=== PATIENT | male | born 1950 | race Caucasian/White ===

== ENCOUNTER 2023-04-19 06:25 | Day surgery (SDC) | payer MEDICARE ==
[~2023-04-19] VITALS: Ht 190.5 cm; Wt 117.7 kg
[2023-04-19] VITALS (7 sets, daily range): BP systolic 117–138; BP diastolic 67–75; PULSE 65–79; RESP 14–16; TEMP 98.1; O2SAT 93–95
[2023-04-19] MEDS ORDERED: normal saline 1000ml 1,000 ML IV PRN (06:45)
[2023-04-19] MEDS ORDERED: ceFAZolin 2,000MG in D5W 100mL IV ONE (06:45)
[2023-04-19] MEDS ORDERED: NAPR-56 PO (07:21)
[2023-04-19 08:02] LABS: BASOPHILS % (AUTO) 0.4 % (0-1); EOSINOPHILS # (AUTO) 0.6 X10'3 (0-0.9); EOSINOPHILS % (AUTO) 6.7 % (0-6); HEMATOCRIT 40.7 % (42.0-52.0); HEMOGLOBIN 13.5 g/dl (14.0-17.9); LYMPHOCYTES # (AUTO) 1.7 X10'3 (1.1-4.8); LYMPHOCYTES % (AUTO) 17.7 % (21-51); MEAN CORPUSCULAR HEMOGLOBIN 31.7 PG (27.0-31.0); MEAN CORPUSCULAR HGB CONC 33.2 g/dL (33.0-36.5); MEAN CORPUSCULAR VOLUME 95.5 FL (78-98); MEAN PLATELET VOLUME 6.7 FL (7.4-10.4); MONOCYTES # (AUTO) 0.5 X10'3 (0-0.9); MONOCYTES % (AUTO) 5.1 % (2-12); NEUTROPHILS # (AUTO) 6.7 X10'3 (1.8-7.7); NEUTROPHILS % (AUTO) 70.1 % (42-75); PLATELET COUNT 309 X10'3 (140-440); RED BLOOD COUNT 4.26 X10'6 (4.70-6.10); RED CELL DISTRIBUTION WIDTH 15.8 % (11.5-14.5); WHITE BLOOD COUNT 9.6 X10'3 (4.5-11.0)
[2023-04-19 08:08] LABS: INR 0.9 INR; PROTHROMBIN TIME 10.2 SECONDS (9.0-12.0)
[2023-04-19] MEDS ORDERED: LIDOcaine 1% 30ml preserv. free vial ONE (08:37)
[2023-04-19] MEDS ORDERED: midazolam 1 mg/ML 2ml injection ONE (08:37)
[2023-04-19] MEDS ORDERED: diphenhydrAMINE 50 mg/ml inj ONE (08:37)
[2023-04-19] MEDS ORDERED: fentaNYL/PF 50MCG/1 ML 2ML syringe ONE (08:37)
[2023-04-19] MEDS ORDERED: normal saline 1000ml 1,000 ML IV SCH (10:00)
== END 2023-04-19 11:06 | disposition home or self-care (01) ==
LOC: SSTAY O 06:25
PROVIDERS: ATTEND Radiology Vascular & Interventional Radiology
DX: M51.86 Other intervertebral disc disorders, lumbar region (principal); M47.816 Spondylosis without myelopathy or radiculopathy, lumbar region; R60.1 Generalized edema; D72.828 Other elevated white blood cell count; M46.26 Osteomyelitis of vertebra, lumbar region; Z79.899 Other long term (current) drug therapy
CPT/HCPCS: 20225; 36415; 77002; 85025; 85610; 99152; 99153; J1200; J2250; J3010; J3490; J7030